=== PATIENT | female | born 1955 | race African-American/Black ===

== ENCOUNTER 2022-10-05 22:21 | Inpatient (IN) | payer MEDICARE, OTHER ==
[~2022-10-05] VITALS: Ht 162.6 cm; Wt 122.5 kg
--- NOTE | 2022-10-05 21:05 | NUR ---
ADMITTED PATIENT IN REHAB FLOOR UNDER THE CARE OF GAURAV HAWTHORNE/CATHLEEN HELMS, PATIENT ALERT ORIENTED, ABLE TO MAKE NEEDS KNOW, WITH BILATERAL LEG CELLULITIS, WITH 3+ EDEMA OF THE ANKLE. PATIENT CONTINENT OF BLADDER, REQUESTED PUREWICK TO KEPT PATIENT DRY. DR RESENDIZ WAS NOTIFIED.
[2022-10-05 22:54] VITALS: BP 167/76
[2022-10-05] MEDS ORDERED: DILT-3 PO (23:16)
[2022-10-05] MEDS ORDERED: TOLT4CAP PO (23:16)
[2022-10-05] MEDS ORDERED: FLUO20CA42 PO (23:16)
[2022-10-05] MEDS ORDERED: BACL10TA PO (23:17)
[2022-10-05] MEDS ORDERED: ZOLP5TAB2 PO (23:23)
[2022-10-05] MEDS ORDERED: TIZA4TAB5 PO (23:23)
[2022-10-05] MEDS ORDERED: ATOR80TA PO (23:23)
[2022-10-05] MEDS ORDERED: CARB200T PO (23:23)
[2022-10-05] MEDS ORDERED: METO50TA16 PO (23:42)
[2022-10-05] MEDS ORDERED: POTA10CA43 PO (23:42)
[2022-10-05] MEDS ORDERED: HYDR-4077 PO (23:42)
[2022-10-06] MEDS ORDERED: ONDANSETRON 4 MG/2 ML VIAL IV PRN
[2022-10-06] MEDS ORDERED: MAGNESIUM HYDROXIDE 30 ML LIQUID UDC PO PRN
[2022-10-06] MEDS ORDERED: ACETAMINOPHEN 325 MG TABLET PO PRN
[2022-10-06] MEDS ORDERED: HYDROCODONE/APAP 5-325MG TABLET PO PRN
[2022-10-06] MEDS ORDERED: ZOLPIDEM 5 MG TABLET PO PRN ×3 (01:15)
--- NOTE | 2022-10-06 02:07 | NUR ---
NOTIFY CATHLEEN HELMS RIB BENDER THAT AMBIEN 5MG WILL NOT WORK FOR THE PATIENT OKEYED TO MAKE AMBIENT 12.5MG PO HS PRN.
[2022-10-06] MEDS: ZOLPIDEM 5 MG TABLET PO PRN ×2 (02:36→21:43)
--- NOTE | 2022-10-06 02:57 | NUR ---
PATIENT COVID NEGATIVE ON RAPID TEST AT [facility], PATIENT HAS NEVER HAVE COVID, AND UNVACCINATED, BUT SHE HAVE FLU VACCINE IN THIS WINTER TIME. PATIENT REFUSED TO TAKE COVID VACCINE.
[2022-10-06 04:14] VITALS: BP 191/79
[2022-10-06] MEDS: hydrALAZINE HCL 50 MG TABLET PO SCH ×3 (05:06→21:52)
[2022-10-06] MEDS: PANTOPRAZOLE SODIUM 40 MG TABLET.DR PO SCH (06:15)
--- NOTE | 2022-10-06 06:47 | NUR ---
Patient bp was 191/79, given hydralazine 50mg po at 0505, recheck bp at this time 179/79, trending down, no headaches no n/v noted asymptomatic, cont to monitor.
[2022-10-06 07:23] LABS: MEAN CORPUSCULAR HEMOGLOBIN 30.8 uug (24.7-32.8); MEAN CORPUSCULAR VOLUME 93.3 fL (75.5-95.3); PLATELET COUNT (AUTO) 205 K/uL (179-408)
[2022-10-06 07:48] VITALS: BP 168/68
[2022-10-06 08:08] LABS: CREATININE 0.8 mg/dL (0.6-1.3); MAGNESIUM 1.7 mg/dL (1.8-2.4); PHOSPHOROUS 4.6 mg/dL (2.5-4.9); POTASSIUM 3.1 mmol/L (3.5-5.1)
[2022-10-06] MEDS: CARBAMAZEPINE 200 MG TABLET PO SCH ×2 (09:00→09:02)
[2022-10-06] MEDS: POTASSIUM CHLORIDE 10 MEQ TAB.PRT.SR PO SCH (09:02)
[2022-10-06] MEDS: FLUOXETINE HCL 20 MG CAPSULE PO SCH ×2 (09:02→16:04)
[2022-10-06] MEDS: BACLOFEN 10 MG TABLET PO SCH ×2 (09:02→16:04)
[2022-10-06] MEDS: TOLTERODINE LA 2 MG CAP.SR.24H PO SCH (09:02)
[2022-10-06] MEDS: DILTIAZEM HCL CD 240 MG CAP.SR.24H PO SCH (09:03)
[2022-10-06] MEDS: METOPROLOL TARTRATE 50 MG TABLET PO SCH ×2 (09:03→20:46)
--- NOTE | 2022-10-06 09:53 | NUR ---
Patient refused tegretol patient stated she does not take it, she only takes it once in while whenever she has trigeminal pain, which she did not have from year and more.
[2022-10-06] MEDS ORDERED: MAGNESIUM OXIDE 400 MG TABLET PO ONE (12:00)
[2022-10-06] MEDS ORDERED: POTASSIUM CHLORIDE 20 MEQ TAB.PRT.SR PO ONE (12:00)
[2022-10-06 16:45] VITALS: BP 154/71
--- NOTE | 2022-10-06 19:22 | NUR ---
no acute distress noted, report given to next shift
--- NOTE | 2022-10-06 19:45 | NUR ---
NSG: Received patient lying in bed. a/o x4. no c/o pain or discomfort at this time. instructed to call nurse for funeral home assistant vi call light. call light w/in reach.
[2022-10-06 20:00] VITALS: BP 138/45
[2022-10-06] MEDS: ATORVASTATIN 40 MG TABLET PO SCH (20:42)
[2022-10-06] MEDS: DOCUSATE SODIUM 100 MG CAPSULE PO SCH (20:42)
[2022-10-06] MEDS: TIZANIDINE HCL 4 MG TABLET PO SCH (20:42)
--- NOTE | 2022-10-07 | NUR ---
NSG: Patient resting in bed comfortably. no s/s of pain or discomfort noted at this time.call light w/in reach.
[2022-10-07 04:00] VITALS: BP 117/60
[2022-10-07] MEDS: PANTOPRAZOLE SODIUM 40 MG TABLET.DR PO SCH (06:04)
[2022-10-07] MEDS: hydrALAZINE HCL 50 MG TABLET PO SCH ×3 (06:05→21:56)
--- NOTE | 2022-10-07 06:41 | NUR ---
NSG: Remain calm and comfortable through the night. took sleeping meds last night and effective. continue plan of care. call light w/in reach.
[2022-10-07 07:38] VITALS: BP 121/51
[2022-10-07 08:10] LABS: MAGNESIUM 1.8 mg/dL (1.8-2.4); POTASSIUM 4.1 mmol/L (3.5-5.1)
[2022-10-07] MEDS: POTASSIUM CHLORIDE 10 MEQ TAB.PRT.SR PO SCH (08:41)
[2022-10-07] MEDS: DILTIAZEM HCL CD 240 MG CAP.SR.24H PO SCH (08:42)
[2022-10-07] MEDS: CARBAMAZEPINE 200 MG TABLET PO SCH (08:42)
[2022-10-07] MEDS: FLUOXETINE HCL 20 MG CAPSULE PO SCH ×2 (08:42→16:29)
[2022-10-07] MEDS: BACLOFEN 10 MG TABLET PO SCH ×2 (08:42→16:29)
[2022-10-07] MEDS: TOLTERODINE LA 2 MG CAP.SR.24H PO SCH (08:42)
[2022-10-07] MEDS: METOPROLOL TARTRATE 50 MG TABLET PO SCH ×2 (08:43→21:55)
[2022-10-07] MEDS: MULTIVITAMINS,THERAPEUTIC TABLET PO SCH (09:02)
[2022-10-07] MEDS: ASCORBIC ACID 500 MG TABLET PO SCH (09:03)
[2022-10-07 12:41] LABS: THYROID STIMULATING HORMONE 2.612 mIU/mL (0.358-3.740)
[2022-10-07 16:00] VITALS: BP 147/62
[2022-10-07] MEDS: GLUCERNA SHAKE 237 ML CAN PO SCH (16:29)
--- NOTE | 2022-10-07 17:04 | NUR ---
patient is alert, oriented x4, no sob, respiration are even nonlabored, skin warm and dry to touch, patient participated with PT and OT, patient likes to sit on wheelchair for extended time of period, patient requested to go to bed, however expected nursing to pick her up and transfer her to bed, this mortgage underwriter tried to explain to patient that myself and my nurse graduate assistant are here to assist you, however you ( patient) has to help as much as she can. patient got very upset with nursing and stated that she is her so nurses can do it for her, tried to explain that we nurses are here to assist you and increase your independence. Addendum: 10/07/22 at 1713 by MIKE HERNANDEZ RN RN per physical therapy patient is moderate assist with transfers and ambulation. patient was expecting to be total transfer back to bed by nurses. this mortgage underwriter witnessed the transfer in the morning with PT, patient is able to do it herself with moderate assist. tried to teach the patient.
[2022-10-07 20:00] VITALS: BP 159/71
[2022-10-07] MEDS: ATORVASTATIN 40 MG TABLET PO SCH (21:54)
[2022-10-07] MEDS: DOCUSATE SODIUM 100 MG CAPSULE PO SCH (21:54)
[2022-10-07] MEDS: TIZANIDINE HCL 4 MG TABLET PO SCH (21:55)
[2022-10-07] MEDS: ZOLPIDEM 5 MG TABLET PO PRN (21:56)
[2022-10-08] MEDS ORDERED: BACLOFEN 10 MG TABLET PO PRN (01:15)
[2022-10-08 04:00] VITALS: BP 126/66
[2022-10-08] MEDS: hydrALAZINE HCL 50 MG TABLET PO SCH ×4 (06:00→21:07)
[2022-10-08] MEDS: PANTOPRAZOLE SODIUM 40 MG TABLET.DR PO SCH ×2 (06:03→07:00)
[2022-10-08 07:53] VITALS: BP 153/71
--- NOTE | 2022-10-08 07:57 | NUR ---
SHIFT NOTE: PT IS ALERT AND ORIENTED X4 PT ROOM ANIYA WRAP TAKEN OFF GOT NEW ONE FROM SUPPLY CABINET AND REWRAPPED RT LEG PT TOLERATED WELL. PT C/O SPASMS CALLED CATHLEEN HELMS BACLOFEN 10MG Q6H PRN PT WAS GIVEN MEDICATION ALONG WITH OTHER MEDICATION NO SIGNS OF ADVERSE REACTION FROM MEDICATION WILL ENDORSE TO AM NURSE.
--- NOTE | 2022-10-08 08:52 | NUR ---
INDIVIDUALIZED PLAN OF CARE
[2022-10-08] MEDS: METOPROLOL TARTRATE 50 MG TABLET PO SCH ×2 (10:16→21:06)
[2022-10-08] MEDS: TOLTERODINE LA 2 MG CAP.SR.24H PO SCH (10:16)
[2022-10-08] MEDS: POTASSIUM CHLORIDE 10 MEQ TAB.PRT.SR PO SCH (10:16)
[2022-10-08] MEDS: REMEDY ESSENTIAL ZINC PASTE 113 GM TP PRN (10:16)
[2022-10-08] MEDS: CARBAMAZEPINE 200 MG TABLET PO SCH (10:16)
[2022-10-08] MEDS: BACLOFEN 10 MG TABLET PO SCH ×2 (10:17→17:12)
[2022-10-08] MEDS: DILTIAZEM HCL CD 240 MG CAP.SR.24H PO SCH (10:17)
[2022-10-08] MEDS: MULTIVITAMINS,THERAPEUTIC TABLET PO SCH (10:17)
[2022-10-08] MEDS: FLUOXETINE HCL 20 MG CAPSULE PO SCH ×2 (10:17→17:12)
[2022-10-08] MEDS: ASCORBIC ACID 500 MG TABLET PO SCH (10:17)
[2022-10-08] MEDS: GLUCERNA SHAKE 237 ML CAN PO SCH ×2 (10:18→17:14)
[2022-10-08 16:00] VITALS: BP 137/56
--- NOTE | 2022-10-08 18:37 | NUR ---
Patient is alert and oriented, x4, verbalizes needs and follows directions. Patient in on R/A, saturating well, no respiratory distress noted. Patient requires of one person physical assist with personal care/hygiene/ADLs in general. Patient is obese and has difficulty maneuvering around due to impaired physical mobility, MS, elephant legs. Patient was seen by rehab director occupational therapist and internal medicine MD. Per Dr. Regalado to change leg wraps on patient's legs. Dressings changed as indicated, no circulation impairment by dressings noted. A bariatric bed was delivered for patient due to current/hospital bed is too small for patient. Assisted patient with ADLS and at all times during shift. Needs anticipated and met.
[2022-10-08 20:00] VITALS: BP 127/57
[2022-10-08] MEDS: ATORVASTATIN 40 MG TABLET PO SCH (21:05)
[2022-10-08] MEDS: DOCUSATE SODIUM 100 MG CAPSULE PO SCH (21:06)
[2022-10-08] MEDS: TIZANIDINE HCL 4 MG TABLET PO SCH (21:07)
[2022-10-08] MEDS: ZOLPIDEM 5 MG TABLET PO PRN ×2 (21:29→21:31)
--- NOTE | 2022-10-08 21:32 | NUR ---
Zolpidem given a total of 20 mg as ordered. No wasted medication noted. aware.
--- NOTE | 2022-10-08 21:33 | NUR ---
Zolpidem 20 mg total was given as ordered. Zolpidem 5 mg was wasted. Pharmacy made aware.
[2022-10-09 04:00] VITALS: BP 120/60
[2022-10-09] MEDS: hydrALAZINE HCL 50 MG TABLET PO SCH ×3 (05:33→22:45)
[2022-10-09] MEDS: PANTOPRAZOLE SODIUM 40 MG TABLET.DR PO SCH (06:39)
[2022-10-09] MEDS: GLUCERNA SHAKE 237 ML CAN PO SCH ×2 (07:42→16:53)
[2022-10-09 07:49] VITALS: BP 129/64
--- NOTE | 2022-10-09 09:49 | NUR ---
Pt in PT off the floor. Unable to give 0900 meds at this time. Will give meds when pt returns to her room. Saw pt at 0750, pt stable, no s/s of distress noted, no SOB.
[2022-10-09] MEDS: CARBAMAZEPINE 200 MG TABLET PO SCH ×2 (09:59→10:14)
[2022-10-09] MEDS: TOLTERODINE LA 2 MG CAP.SR.24H PO SCH (10:15)
[2022-10-09] MEDS: DILTIAZEM HCL CD 240 MG CAP.SR.24H PO SCH (10:15)
[2022-10-09] MEDS: ASCORBIC ACID 500 MG TABLET PO SCH (10:16)
[2022-10-09] MEDS: FLUOXETINE HCL 20 MG CAPSULE PO SCH ×2 (10:16→16:52)
[2022-10-09] MEDS: MULTIVITAMINS,THERAPEUTIC TABLET PO SCH (10:16)
[2022-10-09] MEDS: POTASSIUM CHLORIDE 10 MEQ TAB.PRT.SR PO SCH (10:16)
[2022-10-09] MEDS: METOPROLOL TARTRATE 50 MG TABLET PO SCH ×2 (10:16→21:18)
[2022-10-09] MEDS: BACLOFEN 10 MG TABLET PO SCH ×2 (10:16→16:53)
[2022-10-09] MEDS: ENOXAPARIN SODIUM 40 MG/0.4 ML DISP.SYRIN SQ SCH (10:19)
--- NOTE | 2022-10-09 10:30 | NUR ---
Pt wants a Blood draw for IGG. Was told by to fax info from previous facility to [facility]. [facility] fax# given to pt.
[2022-10-09 15:56] VITALS: BP 140/64
[2022-10-09 20:35] VITALS: BP 141/55
[2022-10-09] MEDS: DOCUSATE SODIUM 100 MG CAPSULE PO SCH (21:16)
[2022-10-09] MEDS: ATORVASTATIN 40 MG TABLET PO SCH (21:16)
[2022-10-09] MEDS: TIZANIDINE HCL 4 MG TABLET PO SCH (21:16)
[2022-10-09] MEDS: ZOLPIDEM 5 MG TABLET PO PRN (21:17)
--- NOTE | 2022-10-09 23:00 | NUR ---
1915- Patient is alert and oriented, x4, verbalizes needs and follows directions. Patient in on room air. Patient requires of one person for physical help. The patient has no iv access. Per Dr. Regalado orders to change leg wraps on patient's legs. Dressings changed as indicated, no circulation impairment by dressings noted. Call light within reach, two side rails bed alarm on, bed at lowest position. The patient has no complains of pain or sob. Will continue to monitor throughout the shift. 2300- The patient request for a warm blanket. Item is given to the patient. The patient has no complains of pain, or sob. will continue to monitor throughtout the shift.
[2022-10-10 04:20] VITALS: BP 113/65
[2022-10-10] MEDS: hydrALAZINE HCL 50 MG TABLET PO SCH ×3 (06:45→22:00)
[2022-10-10] MEDS: PANTOPRAZOLE SODIUM 40 MG TABLET.DR PO SCH (06:45)
[2022-10-10] MEDS: ASCORBIC ACID 500 MG TABLET PO SCH (09:22)
[2022-10-10] MEDS: POTASSIUM CHLORIDE 10 MEQ TAB.PRT.SR PO SCH (09:23)
[2022-10-10] MEDS: MULTIVITAMINS,THERAPEUTIC TABLET PO SCH (09:23)
[2022-10-10] MEDS: FLUOXETINE HCL 20 MG CAPSULE PO SCH ×2 (09:23→16:33)
[2022-10-10] MEDS: CARBAMAZEPINE 200 MG TABLET PO SCH (09:23)
[2022-10-10] MEDS: DILTIAZEM HCL CD 240 MG CAP.SR.24H PO SCH (09:23)
[2022-10-10] MEDS: TOLTERODINE LA 2 MG CAP.SR.24H PO SCH (09:23)
[2022-10-10] MEDS: METOPROLOL TARTRATE 50 MG TABLET PO SCH ×2 (09:24→21:00)
[2022-10-10] MEDS: BACLOFEN 10 MG TABLET PO SCH ×2 (09:24→16:33)
[2022-10-10] MEDS: GLUCERNA SHAKE 237 ML CAN PO SCH ×2 (09:25→17:41)
[2022-10-10] MEDS: ENOXAPARIN SODIUM 40 MG/0.4 ML DISP.SYRIN SQ SCH (09:27)
--- NOTE | 2022-10-10 11:25 | NUR ---
0730-PATIENT IN BED, ALERT/OX4, ABLE TO VERBALIZE HER NEEDS AND FOLLOW DIRECTIONS, DENIES PAIN. ON R/A, NO RESPIRATORY DISTRESS NOTED, CALL LIGHT AT REACH. 0900-SCHEDULED MEDICATION ADMINISTERED ORDERED, NO ASE NOTED. ORAL FLUIDS TAKEN WELL. 0930-ASSISTED TO THE RESTROOM, VOIDED/HAD A BM, NO C/O GI DISCOMFORT. 1100-REC'D A SHOWER BY REHAB STAFF.
--- NOTE | 2022-10-10 13:17 | NUR ---
INTERDISCIPLINARY TEAM CONFERENCE
[2022-10-10 15:54] VITALS: BP 149/62
[2022-10-10 20:00] VITALS: BP 137/67
[2022-10-10] MEDS: ATORVASTATIN 40 MG TABLET PO SCH (22:20)
[2022-10-10] MEDS: TIZANIDINE HCL 4 MG TABLET PO SCH (22:20)
[2022-10-10] MEDS: DOCUSATE SODIUM 100 MG CAPSULE PO SCH (22:20)
[2022-10-10] MEDS: ZOLPIDEM 5 MG TABLET PO PRN (22:26)
--- NOTE | 2022-10-10 23:00 | NUR ---
1925- Patient is alert and oriented, x4, verbalizes needs and follows directions. Patient in on room air. Patient requires of one person for physical help. The patient has no iv access. Per Dr. Regalado orders to change leg wraps on patient's legs. Dressings changed as indicated, no circulation impairment by dressings noted. Helped the patient to the restroom. Call light within reach, two side rails bed alarm on, bed at lowest position. The patient has no complains of pain or sob. Will continue to monitor throughout the shift. 2300- The patient request for extra water. Item is given to the patient. The patient has no complains of pain, or sob. will continue to monitor throughtout the shift. 0645- Received call from [facility] about a mrsa test of the patient. 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 Will notified the day nurse.
[2022-10-11] MEDS: hydrALAZINE HCL 50 MG TABLET PO SCH ×3 (06:00→22:45)
[2022-10-11] MEDS: PANTOPRAZOLE SODIUM 40 MG TABLET.DR PO SCH (06:10)
[2022-10-11 07:44] VITALS: BP 155/77
[2022-10-11] MEDS: DILTIAZEM HCL CD 240 MG CAP.SR.24H PO SCH (08:45)
[2022-10-11] MEDS: FLUOXETINE HCL 20 MG CAPSULE PO SCH ×2 (08:46→16:20)
[2022-10-11] MEDS: CARBAMAZEPINE 200 MG TABLET PO SCH (08:46)
[2022-10-11] MEDS: METOPROLOL TARTRATE 50 MG TABLET PO SCH ×2 (08:46→20:45)
[2022-10-11] MEDS: POTASSIUM CHLORIDE 10 MEQ TAB.PRT.SR PO SCH (08:46)
[2022-10-11] MEDS: BACLOFEN 10 MG TABLET PO SCH ×2 (08:46→16:20)
[2022-10-11] MEDS: ASCORBIC ACID 500 MG TABLET PO SCH (08:47)
[2022-10-11] MEDS: TOLTERODINE LA 2 MG CAP.SR.24H PO SCH (08:48)
[2022-10-11] MEDS: ENOXAPARIN SODIUM 40 MG/0.4 ML DISP.SYRIN SQ SCH (08:50)
[2022-10-11] MEDS: MULTIVITAMINS,THERAPEUTIC TABLET PO SCH (08:51)
[2022-10-11] MEDS: REMEDY ESSENTIAL ZINC PASTE 113 GM TP PRN (08:52)
[2022-10-11] MEDS: GLUCERNA SHAKE 237 ML CAN PO SCH ×2 (08:53→17:11)
[2022-10-11 16:43] VITALS: BP 149/64
--- NOTE | 2022-10-11 19:09 | NUR ---
PATIENT IN USUAL STABLE CONDITIONS, NO CHANGES NOTED; PATIENT ABLE TO COMMUNICATE HER NEEDS PROMPTLY AND TIMELY. CONTINENT OF BOTH, ASSISTED TO USE THE RESTROOM PER HER REQUEST. PATIENT OOB SITTING AT BEDSIDE ON HER W/C AND TO HER THERAPY. PATIENT OBVIOUSLY IMPROVING PHYSICALLY, GETTING STRONGER. STILL AT HIGH RISK FOR FALLS AND SELF INJURY DT UNSTEADY GAIT, POOR COORDINATION AND BALANCE CONTROL WITH DIFFICULTY IN WALKING. A CLUTTER FREE ENVIRONMENT PROVIDED, ASSIST NEEDED DURING SHIFT. ROUTINE ROUNDS AND FREQUENT VISUAL CHECKS DONE. ALL NEEDS ANTICIPATED AND MET.
[2022-10-11 20:00] VITALS: BP 130/44
[2022-10-11] MEDS: MUPIROCIN 2% OINT 22 GM TUBE NS SCH (20:44)
[2022-10-11] MEDS: DOCUSATE SODIUM 100 MG CAPSULE PO SCH (20:44)
[2022-10-11] MEDS: TIZANIDINE HCL 4 MG TABLET PO SCH (20:45)
[2022-10-11] MEDS: ATORVASTATIN 40 MG TABLET PO SCH (20:45)
[2022-10-11] MEDS: ZOLPIDEM 5 MG TABLET PO PRN (20:47)
[2022-10-11] MEDS ORDERED: MUPIROCIN 2% OINT 22 GM TUBE NS SCH (21:00)
--- NOTE | 2022-10-11 23:00 | NUR ---
1925- Patient is alert and oriented, x4, verbalizes needs and follows directions. Patient in on room air. Patient requires of one person for physical help. The patient has no iv access. Per Dr. Regalado orders to change leg wraps on patient's legs. Dressings changed as indicated, no circulation impairment by dressings noted. Helped the patient to the restroom. Call light within reach, two side rails bed alarm on, bed at lowest position. The patient has no complains of pain or sob. Will continue to monitor throughout the shift. 0000- The patient request for extra water. Item is given to the patient. The patient has no complains of pain, or sob. will continue to monitor throughtout the shift. 0500- The patient is asleep and has no complains of pain or sob. Will continue to monitor throughout the shift.
[2022-10-12 04:00] VITALS: BP 153/68
[2022-10-12] MEDS: hydrALAZINE HCL 50 MG TABLET PO SCH ×3 (06:51→21:15)
[2022-10-12] MEDS: PANTOPRAZOLE SODIUM 40 MG TABLET.DR PO SCH (06:51)
[2022-10-12 06:58] LABS: HEMATOCRIT 39.3 % (31.2-41.9); MEAN CORPUSCULAR HEMOGLOBIN 30.6 uug (24.7-32.8); PLATELET COUNT (AUTO) 222 K/uL (179-408)
[2022-10-12 07:16] LABS: CREATININE 0.8 mg/dL (0.6-1.3); MAGNESIUM 1.9 mg/dL (1.8-2.4); PHOSPHOROUS 3.9 mg/dL (2.5-4.9); POTASSIUM 3.7 mmol/L (3.5-5.1)
[2022-10-12] MEDS: GLUCERNA SHAKE 237 ML CAN PO SCH ×2 (07:42→17:25)
[2022-10-12 08:06] LABS: *IMMUNOGLOBULIN G, SERUM 310 mg/dL (586-1602); IMMUNOGLOBULIN M, SERUM 14 mg/dL (26-217)
[2022-10-12] MEDS: CARBAMAZEPINE 200 MG TABLET PO SCH ×2 (09:42→09:45)
[2022-10-12] MEDS: MUPIROCIN 2% OINT 22 GM TUBE NS SCH ×2 (09:42→21:11)
[2022-10-12] MEDS: DILTIAZEM HCL CD 240 MG CAP.SR.24H PO SCH (09:43)
[2022-10-12] MEDS: ASCORBIC ACID 500 MG TABLET PO SCH (09:43)
[2022-10-12] MEDS: BACLOFEN 10 MG TABLET PO SCH ×2 (09:43→17:25)
[2022-10-12] MEDS: FLUOXETINE HCL 20 MG CAPSULE PO SCH ×2 (09:43→17:25)
[2022-10-12] MEDS: METOPROLOL TARTRATE 50 MG TABLET PO SCH ×2 (09:43→21:12)
[2022-10-12] MEDS: MULTIVITAMINS,THERAPEUTIC TABLET PO SCH (09:43)
[2022-10-12] MEDS: ENOXAPARIN SODIUM 40 MG/0.4 ML DISP.SYRIN SQ SCH (09:44)
[2022-10-12] MEDS: POTASSIUM CHLORIDE 10 MEQ TAB.PRT.SR PO SCH (09:47)
[2022-10-12] MEDS: TOLTERODINE LA 2 MG CAP.SR.24H PO SCH (09:48)
[2022-10-12 11:56] VITALS: BP 143/69
[2022-10-12 14:06] LABS: ALBUMIN 2.5 g/dL (2.9-4.4); ALPHA-1-GLOBULIN 0.3 g/dL (0.0-0.4); ALPHA-2-GLOBULIN 0.8 g/dL (0.4-1.0); BETA GLOBULIN 0.9 g/dL (0.7-1.3); GAMMA GLOBULIN 0.6 g/dL (0.4-1.8); GLOBULIN, TOTAL 2.5 g/dL (2.2-3.9); M-SPIKE Not Observed g/dL (Not Observed)
[2022-10-12 15:53] VITALS: BP 166/73
--- NOTE | 2022-10-12 15:53 | NUR ---
Spoke to pt re: her new IgG lab results, which are low. Pt is concerned that they are too low and that she needs an Immunoglobulin Transfusion to avoid an MS exacerbation. I messaged Dr. Khanna and will follow up with his orders. Addendum: 10/12/22 at 1845 by QUE KEYS RN Dr. Khanna stated that we do no do those infusions here. He stated that he will be in tomorrow to meet with the pt to discuss.
[2022-10-12 20:21] VITALS: BP 148/82
[2022-10-12] MEDS: DOCUSATE SODIUM 100 MG CAPSULE PO SCH (21:11)
[2022-10-12] MEDS: TIZANIDINE HCL 4 MG TABLET PO SCH (21:12)
[2022-10-12] MEDS: ATORVASTATIN 40 MG TABLET PO SCH (21:12)
[2022-10-12] MEDS: ZOLPIDEM 5 MG TABLET PO PRN (21:29)
--- NOTE | 2022-10-13 04:12 | NUR ---
OOB in chair at beginning of shift. AAOx4 All needs attended. Transfer back in bed with minimal assist. Patient on bariatric bed. All due meds given as scheduled. Tolerated well. Purewick to suction draining yellow urine. No complaints presented during the shift.
[2022-10-13 06:16] VITALS: BP 152/79
[2022-10-13] MEDS: PANTOPRAZOLE SODIUM 40 MG TABLET.DR PO SCH (06:16)
[2022-10-13] MEDS: hydrALAZINE HCL 50 MG TABLET PO SCH ×3 (06:16→21:05)
[2022-10-13 07:50] VITALS: BP 122/65
[2022-10-13] MEDS: GLUCERNA SHAKE 237 ML CAN PO SCH ×2 (08:20→17:00)
--- NOTE | 2022-10-13 09:00 | NUR ---
PUREWICK PLACEMENT NOT OPTIMAL at night, last night and the night before, with some to a lot of leaking by morning. Applied Z-guard to rosita area for redness and irritation. Pt applied own ointment to prevent UTIs.
[2022-10-13] MEDS: MUPIROCIN 2% OINT 22 GM TUBE NS SCH ×2 (09:29→21:03)
[2022-10-13] MEDS: TOLTERODINE LA 2 MG CAP.SR.24H PO SCH (09:30)
[2022-10-13] MEDS: METOPROLOL TARTRATE 50 MG TABLET PO SCH ×2 (09:30→21:05)
[2022-10-13] MEDS: POTASSIUM CHLORIDE 10 MEQ TAB.PRT.SR PO SCH (09:30)
[2022-10-13] MEDS: DILTIAZEM HCL CD 240 MG CAP.SR.24H PO SCH (09:30)
[2022-10-13] MEDS: MULTIVITAMINS,THERAPEUTIC TABLET PO SCH (09:31)
[2022-10-13] MEDS: FLUOXETINE HCL 20 MG CAPSULE PO SCH ×2 (09:31→16:58)
[2022-10-13] MEDS: ASCORBIC ACID 500 MG TABLET PO SCH (09:31)
[2022-10-13] MEDS: ENOXAPARIN SODIUM 40 MG/0.4 ML DISP.SYRIN SQ SCH (09:33)
[2022-10-13] MEDS: BACLOFEN 10 MG TABLET PO SCH ×2 (09:33→16:58)
[2022-10-13] MEDS: REMEDY ESSENTIAL ZINC PASTE 113 GM TP PRN (10:27)
[2022-10-13 16:36] VITALS: BP 123/56
[2022-10-13 20:32] VITALS: BP 123/51
[2022-10-13] MEDS: DOCUSATE SODIUM 100 MG CAPSULE PO SCH (21:04)
[2022-10-13] MEDS: ATORVASTATIN 40 MG TABLET PO SCH (21:04)
[2022-10-13] MEDS: TIZANIDINE HCL 4 MG TABLET PO SCH (21:05)
[2022-10-13] MEDS: ZOLPIDEM 5 MG TABLET PO PRN (21:08)
--- NOTE | 2022-10-14 04:34 | NUR ---
Patient stable during the shift. VSS Tolerated po meds well. Kept comfortable. All needs attended and met. Purewick to suction, yellow urine noted. Fall precautions maintained. Call padilla within reach. Will monitor patient.
--- NOTE | 2022-10-14 05:38 | NUR ---
patient refusing her 6am hydralazine plus the protonix due @ 0700 because she refused to be waken up. Also refused vital signs this am coz she said its hard for her to go back to sleep.
[2022-10-14] MEDS: hydrALAZINE HCL 50 MG TABLET PO SCH ×3 (05:41→21:10)
[2022-10-14] MEDS: PANTOPRAZOLE SODIUM 40 MG TABLET.DR PO SCH (06:04)
[2022-10-14] MEDS: GLUCERNA SHAKE 237 ML CAN PO SCH ×2 (08:23→16:19)
[2022-10-14] MEDS: FLUOXETINE HCL 20 MG CAPSULE PO SCH ×2 (08:24→16:19)
[2022-10-14] MEDS: POTASSIUM CHLORIDE 10 MEQ TAB.PRT.SR PO SCH (08:24)
[2022-10-14] MEDS: BACLOFEN 10 MG TABLET PO SCH ×2 (08:24→16:19)
[2022-10-14 08:25] VITALS: BP 144/67
[2022-10-14] MEDS: ASCORBIC ACID 500 MG TABLET PO SCH (08:25)
[2022-10-14] MEDS: TOLTERODINE LA 2 MG CAP.SR.24H PO SCH (08:25)
[2022-10-14] MEDS: DILTIAZEM HCL CD 240 MG CAP.SR.24H PO SCH (08:25)
[2022-10-14] MEDS: METOPROLOL TARTRATE 50 MG TABLET PO SCH ×2 (08:25→21:08)
[2022-10-14] MEDS: MULTIVITAMINS,THERAPEUTIC TABLET PO SCH (08:25)
[2022-10-14] MEDS: ENOXAPARIN SODIUM 40 MG/0.4 ML DISP.SYRIN SQ SCH (08:27)
[2022-10-14] MEDS: MUPIROCIN 2% OINT 22 GM TUBE NS SCH ×2 (08:31→21:11)
[2022-10-14 16:00] VITALS: BP 148/63
--- NOTE | 2022-10-14 19:47 | NUR ---
RECEIVED REPORT FROM RACHEAL HAQUE NOC SHIFT. PATIENT IS ALERT & ORIENTED X4, AND SPEAKS FRENCH. PATIENT PARTICIPATES WITH PHYSICAL AND OCCUPATIONAL THERAPY SCHEDULED. VITAL SIGNS STABLE. PATIENT DENIES PAIN. PATIENT VOIDS ADEQUATELY WITH ASSIST TO BATHROOM. NO ACUTE DISTRESS NOTED. FALL PRECAUTIONS OBSERVED. ALL NEEDS MET AT THIS TIME. ENDORSED CARE TO RACHEAL MARTINEZ, FOR CONTINUATION OF CARE.
[2022-10-14 20:00] VITALS: BP 146/80
[2022-10-14] MEDS: DOCUSATE SODIUM 100 MG CAPSULE PO SCH (21:06)
[2022-10-14] MEDS: TIZANIDINE HCL 4 MG TABLET PO SCH (21:06)
[2022-10-14] MEDS: ATORVASTATIN 40 MG TABLET PO SCH (21:08)
[2022-10-14] MEDS: ZOLPIDEM 5 MG TABLET PO PRN (21:08)
[2022-10-15] MEDS: hydrALAZINE HCL 50 MG TABLET PO SCH ×3 (06:36→21:39)
[2022-10-15] MEDS: PANTOPRAZOLE SODIUM 40 MG TABLET.DR PO SCH (06:36)
[2022-10-15 07:37] VITALS: BP 142/62
[2022-10-15] MEDS: POTASSIUM CHLORIDE 10 MEQ TAB.PRT.SR PO SCH (08:24)
[2022-10-15] MEDS: MULTIVITAMINS,THERAPEUTIC TABLET PO SCH (08:24)
[2022-10-15] MEDS: TOLTERODINE LA 2 MG CAP.SR.24H PO SCH (08:25)
[2022-10-15] MEDS: METOPROLOL TARTRATE 50 MG TABLET PO SCH ×2 (08:25→20:31)
[2022-10-15] MEDS: DILTIAZEM HCL CD 240 MG CAP.SR.24H PO SCH (08:25)
[2022-10-15] MEDS: BACLOFEN 10 MG TABLET PO SCH ×2 (08:25→17:00)
[2022-10-15] MEDS: ASCORBIC ACID 500 MG TABLET PO SCH (08:25)
[2022-10-15] MEDS: FLUOXETINE HCL 20 MG CAPSULE PO SCH ×2 (08:25→17:00)
[2022-10-15] MEDS: ENOXAPARIN SODIUM 40 MG/0.4 ML DISP.SYRIN SQ SCH (08:26)
[2022-10-15] MEDS: REMEDY ESSENTIAL ZINC PASTE 113 GM TP PRN (08:27)
[2022-10-15] MEDS: GLUCERNA SHAKE 237 ML CAN PO SCH ×2 (08:27→17:00)
[2022-10-15] MEDS: MUPIROCIN 2% OINT 22 GM TUBE NS SCH ×2 (08:33→20:26)
[2022-10-15 13:06] LABS: *IGG SUBCLASS 1 139 mg/dL (248-810); *IGG SUBCLASS 2 108 mg/dL (130-555); *IGG SUBCLASS 3 9 mg/dL (15-102); *IGG SUBCLASS 4 4 mg/dL (2-96); *IMMUNOGLOBULIN G, SERUM 304 mg/dL (586-1602)
[2022-10-15 16:00] VITALS: BP 142/62
--- NOTE | 2022-10-15 18:52 | NUR ---
Patient alert and oriented, able to make her needs known and follow directions. OOB daily on W/C, patient denies any pain. Eating and drinking well, no C/O GI discomfort Continent of both, requires assist of one person with ADLs in general, with BRP & continent of both. Assist to to use restroom (transfers) Q2HRS/PRN. Patient with good appetite, eating and drinking well, compliant with treatment and care, cooperative with nursing staff, continues under rehab for PT/OT skilled services, patient able to actively participate in therapy, making good progress. Continues to be at risk for falls and self injury, a safe environment provided, needs anticipated and met promptly and timely. No MICHELLE or LOC noted during shift. Medication administered as scheduled through out the shift as ordered by .
[2022-10-15 20:00] VITALS: BP 139/65
[2022-10-15] MEDS: DOCUSATE SODIUM 100 MG CAPSULE PO SCH (20:30)
[2022-10-15] MEDS: ATORVASTATIN 40 MG TABLET PO SCH (20:31)
[2022-10-15] MEDS: TIZANIDINE HCL 4 MG TABLET PO SCH (20:31)
[2022-10-15] MEDS: ZOLPIDEM 5 MG TABLET PO PRN (21:43)
[2022-10-16] MEDS: hydrALAZINE HCL 50 MG TABLET PO SCH ×3 (05:39→21:56)
[2022-10-16] MEDS: PANTOPRAZOLE SODIUM 40 MG TABLET.DR PO SCH (06:04)
[2022-10-16] MEDS: GLUCERNA SHAKE 237 ML CAN PO SCH ×2 (08:11→17:07)
[2022-10-16] MEDS: FLUOXETINE HCL 20 MG CAPSULE PO SCH ×2 (08:12→16:46)
[2022-10-16] MEDS: ASCORBIC ACID 500 MG TABLET PO SCH (08:12)
[2022-10-16] MEDS: ENOXAPARIN SODIUM 40 MG/0.4 ML DISP.SYRIN SQ SCH (08:12)
[2022-10-16] MEDS: BACLOFEN 10 MG TABLET PO SCH ×2 (08:12→16:46)
[2022-10-16] MEDS: POTASSIUM CHLORIDE 10 MEQ TAB.PRT.SR PO SCH (08:12)
[2022-10-16] MEDS: MUPIROCIN 2% OINT 22 GM TUBE NS SCH (08:13)
[2022-10-16] MEDS: MULTIVITAMINS,THERAPEUTIC TABLET PO SCH (08:13)
[2022-10-16] MEDS: TOLTERODINE LA 2 MG CAP.SR.24H PO SCH (08:13)
[2022-10-16] MEDS: REMEDY ESSENTIAL ZINC PASTE 113 GM TP PRN (08:13)
[2022-10-16] MEDS: DILTIAZEM HCL CD 240 MG CAP.SR.24H PO SCH (08:23)
[2022-10-16] MEDS: METOPROLOL TARTRATE 50 MG TABLET PO SCH ×2 (08:24→21:56)
--- NOTE | 2022-10-16 09:38 | NUR ---
0730-Patient in bed, asleep, no distress/SOB noted. Patient able to wake up, verbalizes needs and follows directions. Patient denies pain, call light within reach. 0900-Scheduled/due medications administered as ordered, no ASE noted. Oral fluids taken well.
[2022-10-16 15:52] VITALS: BP 128/51
[2022-10-16 20:36] VITALS: BP 147/68
[2022-10-16] MEDS: ZOLPIDEM 5 MG TABLET PO PRN (21:54)
[2022-10-16] MEDS: ATORVASTATIN 40 MG TABLET PO SCH (21:55)
[2022-10-16] MEDS: DOCUSATE SODIUM 100 MG CAPSULE PO SCH (21:55)
[2022-10-16] MEDS: TIZANIDINE HCL 4 MG TABLET PO SCH (21:56)
[2022-10-17] MEDS: hydrALAZINE HCL 50 MG TABLET PO SCH ×3 (05:59→21:12)
[2022-10-17] MEDS: GLUCERNA SHAKE 237 ML CAN PO SCH ×2 (08:00→17:43)
[2022-10-17] MEDS: FLUOXETINE HCL 20 MG CAPSULE PO SCH ×2 (10:27→17:43)
[2022-10-17] MEDS: TOLTERODINE LA 2 MG CAP.SR.24H PO SCH (10:27)
[2022-10-17] MEDS: BACLOFEN 10 MG TABLET PO SCH ×2 (10:28→17:43)
[2022-10-17] MEDS: POTASSIUM CHLORIDE 10 MEQ TAB.PRT.SR PO SCH (10:29)
[2022-10-17] MEDS: MULTIVITAMINS,THERAPEUTIC TABLET PO SCH (10:32)
[2022-10-17] MEDS: ASCORBIC ACID 500 MG TABLET PO SCH (10:32)
[2022-10-17] MEDS: DILTIAZEM HCL CD 240 MG CAP.SR.24H PO SCH (12:37)
[2022-10-17] MEDS: METOPROLOL TARTRATE 50 MG TABLET PO SCH ×2 (12:37→21:12)
[2022-10-17] MEDS: PANTOPRAZOLE SODIUM 40 MG TABLET.DR PO SCH (12:40)
--- NOTE | 2022-10-17 15:39 | NUR ---
INTERDISCIPLINARY TEAM CONFERENCE
[2022-10-17 15:42] VITALS: BP 138/66
[2022-10-17 20:00] VITALS: BP 137/55
--- NOTE | 2022-10-17 20:16 | NUR ---
SHIFT NOTE: PT IS ALERT AND ORIENTED X4 PT HAD PT AND OT THIS AM AND MEDICATION GIVEN ORDERED NO SIGNS OF RESPIRATORY DISTRESS NOTED. AND NO ADVERSE REACTION FROM MEDICATION. PT DENIES PAIN. PT IS SCHEDULED FOR D/C IN THE AM. REPORT GIVEN TO EVENING NURSE.
[2022-10-17] MEDS: DOCUSATE SODIUM 100 MG CAPSULE PO SCH (21:11)
[2022-10-17] MEDS: ATORVASTATIN 40 MG TABLET PO SCH (21:12)
[2022-10-17] MEDS: ZOLPIDEM 5 MG TABLET PO PRN (21:12)
[2022-10-17] MEDS: TIZANIDINE HCL 4 MG TABLET PO SCH (21:12)
--- NOTE | 2022-10-17 22:00 | NUR ---
REDNESS NOTED TO BILATERAL GROIN AND VANGIE-VAGINAL AREA. Z-GUARD APPLIED. PATIENT REFUSED PICTURES. WILL ENDORSE TO AM SHIFT. ALL NEEDS ATTENDED.
[2022-10-18] MEDS: hydrALAZINE HCL 50 MG TABLET PO SCH ×2 (06:00→16:39)
[2022-10-18] MEDS: PANTOPRAZOLE SODIUM 40 MG TABLET.DR PO SCH (06:26)
[2022-10-18 07:44] VITALS: BP 151/74
[2022-10-18] MEDS: GLUCERNA SHAKE 237 ML CAN PO SCH ×2 (08:00→16:39)
[2022-10-18] MEDS: POTASSIUM CHLORIDE 10 MEQ TAB.PRT.SR PO SCH (10:10)
[2022-10-18] MEDS: BACLOFEN 10 MG TABLET PO SCH ×2 (10:11→16:39)
[2022-10-18] MEDS: METOPROLOL TARTRATE 50 MG TABLET PO SCH (10:11)
[2022-10-18] MEDS: FLUOXETINE HCL 20 MG CAPSULE PO SCH ×2 (10:11→16:39)
[2022-10-18] MEDS: ASCORBIC ACID 500 MG TABLET PO SCH (10:12)
[2022-10-18] MEDS: TOLTERODINE LA 2 MG CAP.SR.24H PO SCH (10:12)
[2022-10-18] MEDS: DILTIAZEM HCL CD 240 MG CAP.SR.24H PO SCH (10:12)
[2022-10-18] MEDS: MULTIVITAMINS,THERAPEUTIC TABLET PO SCH (10:12)
--- NOTE | 2022-10-18 13:17 | NUR ---
WOUND CARE CONSULT: PT SEEN FOR REDNESS/SLIGHT RASH TO GROIN FOLDS, PERINEAL AREA. RECOMMENDATIONS MADE FOR SKIN PROTECTION. DISCUSSED WITH NURSING STAFF. MD IN AGREEMENT WITH PLAN OF CARE.
[2022-10-18] MEDS ORDERED: CLOTRIMAZOLE 1% CREAM 30 GM TUBE TOP SCH (14:00)
[2022-10-18 16:35] VITALS: BP 131/63
[2022-10-18 16:39] VITALS: BP 131/63
--- NOTE | 2022-10-18 18:55 | NUR ---
SHIFT NOTE: PT IS ALERT AND ORIENTED X4 NO SIGNS OF RESPIRATORY DISTRESS NOTED. PT TOOK MEDICATION ORDERED AND WAS GIVEN HAS ORDER FOR DISCHARGE. DISCUSSED WITH PATIENT EDUCATION ON DX AND FOLLOW UP CARE WITH PCP PT SIGNED APPROPRIATE PAPERS WAITING FOR SON TO WEB PUBLISHER AND PT VERBALIZED UNDERSTANDING ON INFORMATION GIVEN WILL ENDORSE TO NIGHT NURSE.
--- NOTE | 2022-10-18 19:00 | NUR ---
1900- Patient is alert and oriented, x4, verbalizes needs and follows directions. Patient in on room air. Patient requires of one person for physical help. The patient has no iv access. Helped the patient to the restroom. Call light within reach, two side rails bed alarm on, bed at lowest position. The patient has no complains of pain or sob. Will continue to monitor throughout the shift. 1948- Patient's son arrives to pick her up. DC paperwork done and given to patient by daytime nurse. Returned all belongings to the patient. The patient has no complains of pain or sob. MOTHER'S HELPER brought the patient down to lobby in wheelchair to son's car.
== END 2022-10-18 20:47 | disposition home health service (06) | DRG 59 ==
PROVIDERS: ADMIT Physical Medicine & Rehabilitation Pain Medicine; ATTEND Physical Medicine & Rehabilitation Pain Medicine
DX: G35 Multiple sclerosis (principal); D68.59 Other primary thrombophilia; L03.116 Cellulitis of left lower limb; G93.40 Encephalopathy, unspecified; M62.82 Rhabdomyolysis; N39.0 Urinary tract infection, site not specified; Z68.42 Body mass index [BMI] 45.0-49.9, adult; Z91.81 History of falling; E11.9 Type 2 diabetes mellitus without complications; E66.01 Morbid (severe) obesity due to excess calories; I10 Essential (primary) hypertension; I87.2 Venous insufficiency (chronic) (peripheral); N32.81 Overactive bladder; E78.5 Hyperlipidemia, unspecified; E83.42 Hypomagnesemia; E87.6 Hypokalemia; G47.00 Insomnia, unspecified; I89.0 Lymphedema, not elsewhere classified; R29.6 Repeated falls; Z85.828 Personal history of other malignant neoplasm of skin; Z90.710 Acquired absence of both cervix and uterus; K21.9 Gastro-esophageal reflux disease without esophagitis
CPT/HCPCS: 36415; 82784; 83735; 84100; 84155; 84165; 84443; 85025; 86334; 97535-GO-CO; A4663; J1650